=== PATIENT | female | born 1970 | race American Indian/Alaskan Native ===

== ENCOUNTER 2017-05-26 23:42 | Emergency (ER) | payer BC ==
[2017-05-27 00:34] VITALS: BP 136/91
--- NOTE | 2017-05-27 05:08 | Emergency Department Report ---
HPI - General Chief Complaint: Headache - HPI HPI: 47-year-old -[place] female comes to the emergency room for flulike symptoms. Patient pushed had a headache Raynaud's nasal congestion sore throat chills no fever. She reports she went to urgent care today which was on and got her prescription for steroids she reports she has not taken it. Patient reports that she is has tried [id number] Delsym which she reported had help then she started taken Mucinex. She has taken no pain medication for her sore throat and headache. Patient has a past medical history of hypothyroidism and she is currently taking Synthroid 25 g daily as well as bio identity vitamins. ED Past Medical Hx - Past Medical History Previous Medical History?: No - Surgical History Past Surgical History?: Yes Additional Surgical History: left breast - Social History Smoking Status: Never Smoker Substance Use Type: Alcohol - Medications Home Medications: Home Medications Medication Instructions Recorded Confirmed Last Taken Type Ibuprofen [Motrin] 800 mg PO Q8H PRN #20 tablet 09/02/14 Unknown Rx Dexchlorpheniram/Phenylephrine 1 each PO BID PRN #10 tablet 05/27/17 Unknown Rx [Rymed Tablet] Ibuprofen 800 mg PO Q8H PRN #30 tablet 05/27/17 Unknown Rx ED Review of Systems ROS: Stated complaint: FLU SX Other details as noted in HPI Constitutional: denies: chills, fever Eyes: denies: eye pain, eye discharge, vision change ENT: throat pain, congestion, other (rhinorrhea) Respiratory: cough Cardiovascular: denies: chest pain, palpitations Endocrine: no symptoms reported Gastrointestinal: denies: abdominal pain, nausea, diarrhea Genitourinary: denies: urgency, dysuria, discharge Musculoskeletal: denies: back pain, joint swelling, arthralgia Skin: denies: rash, lesions Neurological: headache Psychiatric: denies: anxiety, depression Hematological/Lymphatic: denies: easy bleeding, easy bruising Physical Exam - Physical Exam Vital Signs: Vital Signs 05/27/17 00:31 Temperature 98.7 F Pulse Rate 70 Respiratory 18 Rate Blood Pressure 136/91 O2 Sat by Pulse 98 Oximetry General: Alert and oriented 3 nontoxic lucid. Physical Exam: GENERAL: Alert and oriented x3, no apparent distress, Normal Gait, atraumatic. HEAD: Head is normocephalic and a-traumatic. EYES: Extra ocular muscles are intact. Pupils are equal, round, and reactive to light and accommodation. EARS: symetrical, atraumatic, non tender, ear canal clear and moderate cerumen, tympanic membrance non inflamed. gross auditory nml bilaterally. NOSE: Nose symetrical, Nontender,Nares appeared normal. MOUTH:Mouth is well hydrated and without lesions. Tonsils nonerythematous or swollen, Uvula midline, Tongue not elevated. Mucous membranes are moist. Posterior pharynx clear, no exudate or lesions. Patent airways. NECK: Supple. Non edematous, No carotid bruits. No lymphadenopathy or thyromegaly. LUNGS: Symetrical with respiration, No wheezing, no rales or crackles, CTAB. HEART: S1, S2 present, regular rate and rhythm without murmur, no rubs, no gallops. EXTREMITIES/MUSCULOSKELETAL: No cyanosis, clubbing, rash, lesions or edema. Full ROM bilaterally. UE/LE Pulses 2+ bilaterally. LE and UE 5+ strength bilaterally NEUROLOGIC: No focal Deficit, Cranial nerves II through XII are grossly intact. No loss of sensation, No facial droop, PSYCHIATRIC: Mood is congruent with affect, denies suicidal or homicidal ideations. SKIN: Warm and dry, No lesions, No ulceration or induration present ED Course Vital Signs 05/27/17 00:31 Temperature 98.7 F Pulse Rate 70 Respiratory 18 Rate Blood Pressure 136/91 O2 Sat by Pulse 98 Oximetry ED Medical Decision Making - Medical Decision Making Patient has been evaluated by this provider fast track. I discussed the patient 's is most likely allergic rhinitis due to allergies. Patient did inform me that she has multiple allergies but has not been taking anything. I discussed the patient to take medication as prescribed and then once that complete she is still having nasal congestion and sneezing and runny eyes that she may want to get on long-term medication such as Magnolia, Zyrtec, Claritin. Patient verbalized understanding Critical care attestation.: If time is entered above; I have spent that time in minutes in the direct care of this critically ill patient, excluding procedure time. ED Disposition Clinical Impression: Allergic rhinitis Qualifiers: Allergic rhinitis trigger: unspecified Allergic rhinitis seasonality: unspecified seasonality Qualified Code(s): J30.9 - Allergic rhinitis, unspecified Disposition: DC- TO HOME OR SELFCARE Is pt being admited?: No Does the pt Need Aspirin: No Condition: Stable Instructions: Allergic Rhinitis (ED) Prescriptions: Dexchlorpheniram/Phenylephrine [Rymed Tablet] 1 each PO BID PRN #10 tablet PRN Reason: Allergy Symptoms Ibuprofen 800 mg PO Q8H PRN #30 tablet PRN Reason: pain Referrals: STANTON ABBOTT MD [Primary Care Provider] - 3-5 Days Forms: Work/School Release Form(ED)
== END 2017-05-27 05:21 | disposition home or self-care (01) ==
LOC: ED 23:42
DX: J30.9 Allergic rhinitis, unspecified (principal)
CPT/HCPCS: 99282